=== PATIENT | male | born 1950 | race Two or more races ===

== ENCOUNTER 2021-12-24 15:39 | Emergency (ER) | payer OTHER ==
[~2021-12-24] VITALS: Ht 175.3 cm; Wt 113.4 kg
[2021-12-24 16:17] LABS: Basophils # (auto) 0.1 10 ^3/uL (0-0.2); Basophils % (auto) 1.1 % (0.0-2.0); Eosinophils # (auto) 0.5 10 ^3/uL (0-0.8); Eosinophils % (auto) 5.4 % (0.0-7.0); Hematocrit 42.9 % (41.0-53.0); Hemoglobin 15.4 g/dL (13.5-17.5); Lymphocytes # (auto) 1.8 10 ^3/uL (0.4-5.4); Lymphocytes % (auto) 19.6 % (10.0-50.0); Mean Corpuscular Hemoglobin 30.2 pg (28.0-32.0); Mean Corpuscular Hgb Conc. 35.9 g/dL (32.0-36.0); Mean Corpuscular Volume 84.1 fL (80.0-100.0); Monocytes # (auto) 0.9 10 ^3/uL (0-1.3); Monocytes % (auto) 9.3 % (0.0-12.0); Neutrophils % (auto) 64.6 % (37.0-80.0); Nucleated Red Blood Cells % 0.1 %; Red Cell Distribution Width 13.3 % (11.8-14.3); White Blood Cell 9.3 10^3/uL (4.4-10.8)
[2021-12-24 16:35] LABS: Albumin 3.4 g/dL (3.4-5.0); BUN/Creatinine Ratio 17.9; Calcium 8.5 mg/dL (8.5-10.1); Potassium 4.4 mmol/L (3.5-5.1)
[2021-12-24 16:39] LABS: Bilirubin, Total 0.3 mg/dL (0.2-1.0); Total Protein 7.1 g/dL (6.4-8.2)
[2021-12-24] MEDS ORDERED: SODIUM CHLORIDE 0.9% 500 ML IVB ONE (17:00)
[2021-12-24] MEDS ORDERED: SODIUM CHLORIDE 0.9% 1,000 ML IV ONE (17:00)
[2021-12-24 18:45] LABS: Urine WBC None Seen /hpf (0 - 3)
[2021-12-24] MEDS ORDERED: IOHEXOL 350 MG/ML 100ML IJ ONE ×2 (19:16→19:33)
[2021-12-24 19:50] LABS: Urine Bacteria NONE SEEN /hpf (None Seen); Urine Blood Negative /uL (Negative); Urine Specific Gravity 1.015 (1.001-1.035)
[2021-12-25 03:49] VITALS: BP 153/55
== END 2021-12-25 04:22 | disposition short-term general hospital (02) ==
LOC: EDBD 15:39 → ER 15:42
DX: S01.511A Laceration without foreign body of lip, initial encounter (principal); R55 Syncope and collapse; R41.82 Altered mental status, unspecified; R00.1 Bradycardia, unspecified; I44.7 Left bundle-branch block, unspecified; R79.1 Abnormal coagulation profile; E11.65 Type 2 diabetes mellitus with hyperglycemia; E78.5 Hyperlipidemia, unspecified; I10 Essential (primary) hypertension; Z88.0 Allergy status to penicillin; Z20.822 Contact with and (suspected) exposure to COVID-19; X58.XXXA Exposure to other specified factors, initial encounter; Y93.01 Activity, walking, marching and hiking; Y92.89 Other specified places as the place of occurrence of the external cause; Y99.8 Other external cause status
CPT/HCPCS: 36415; 70450; 71046; 71275; 80053; 81001; 83735; 84443; 84484; 85025; 85379; 87426; 93005; 96360; 96361; 99285; J7030; J7040; Q9967

== ENCOUNTER 2025-05-17 08:30 | Emergency (ER) | payer OTHER ==
[~2025-05-17] VITALS: Ht 175.3 cm; Wt 113.0 kg
[~2025-05-17 08:30] MED LIST: GLIP10TA9 PO; IBUP-1455 PO; INSUINJ2 SC; LEVO750T8 PO; LOS25T PO; METF-370 PO; SIMV20TA20 PO; TRAM50TA2 PO
--- NOTE | 2025-05-17 09:01 | ED.PDOC ---
HPI (NEURO) HPI Comments 74-year-old male here with dizziness. He states he woke him up from his sleep. He states it is a room spinning sensation. Denies any weakness to 1 arm or 1 leg. No slurred speech no facial droop. No history of similar type of symptoms in the past. States when he moves his head to the right symptoms are worse. He has a history of atrial fibrillation and per medics, he was going in and out of atrial fibrillation with RVR. Denies any chest discomfort. No history of previous stroke. Chief Complaint: Dizziness Time Seen by MD: 09:00 Primary Care Provider: DESTINEY Fountain Notes: Nurses Notes, Restaurant Line Cook Notes, Medications, Allergies Information Source: Patient, Emergency Med Personnel Mode of Arrival: EMS Severity: Moderate Headache Severity: Moderate Timing: Hours Duration: Since onset Prehospital treatment: None Onset: At rest Circumstances: Spontaneous Symptoms: Vertigo Before: Normal During: Awake After: Normal Mentation History of: DM Modifying factors: Nothing Associated Signs and Symptoms: None Past Medical History PAST MEDICAL HISTORY: Cancer, DM, High Lipids, HTN Surgical History: Appendectomy, Hernia Repair Family History Family History: Reviewed,noncontributory to illness Social History Smoker: Non-Smoker Alcohol: Denies ETOH Use Drugs: Denies Drug Use Lives In: Home Constitutional: denies: chills, diaphoresis, fatigue, fever, malaise, sweats, weakness, others EENTM: denies: blurred vision, double vision, ear bleeding, ear discharge, ear drainage, ear pain, ear ringing, eye pain, eye redness, hearing loss, mouth pain, mouth swelling, nasal discharge, nose bleeding, nose congestion, nose pain, photophobia, tearing, throat pain, throat swelling, voice changes, others Respiratory: denies: cough, hemoptysis, orthopnea, SOB at rest, shortness of breath, SOB with excertion, stridor, wheezing, others Cardiovascular: denies: chest pain, dizzy spells, diaphoresis, Dyspnea on exertion, edema, irregular heart beat, left arm pain, lightheadedness, palpitations, PND, syncope, others Gastrointestinal: denies: abdomen distended, abdominal pain, blood streaked bowels, constipated, diarrhea, dysphagia, difficulty swallowing, hematemesis, melena, nausea, poor appetite, poor fluid intake, rectal bleeding, rectal pain, vomiting, others Genitourinary: denies: burning, dysuria, flank pain, frequency, hematuria, incontinence, penile discharge, penile sore, pain, testicle pain, testicle swelling, urgency, others Neurological: reports: dizziness; denies: fainting, headache, left sided numbness, left sided weakness, numbness, paresthesia, pre-existing deficit, right sided numbness, right sided weakness, seizure, speech problems, tingling, tremors, weakness, others Musculoskeletal: denies: back pain, gout, joint pain, joint swelling, muscle pain, muscle stiffness, neck pain, others Integumetry: denies: bruises, change in color, change in hair/nails, dryness, laceration, lesions, lumps, rash, wounds, others Allergic/Immunocompromised: denies: Difficulty Healing, Frequent Infections, Hives, Itching, others Hematologic/Lymphatic: denies: anemia, blood clots, easy bleeding, easy bruising, swollen glands, others Endocrine: denies: excessive hunger, excessive sweating, excessive thirst, excessive urination, flushing, intolerance to cold, intolerance to heat, unexplained weight gain, unexplained weight loss, others Psychiatric: denies: anxiety, bipolar disorder, depression, hopeless, panic disorder, schizophrenia, sleepless, suicidal, others All Other Systems: Reviewed and Negative Physical Exam General Appearance: No Apparent Distress, Normal HEENT: Normal ENT Inspection, Pharynx Normal, TMs Normal Neck: Full Range of Motion, Non-Tender, Normal, Normal Inspection Respiratory: Chest Non-Tender, Lungs Clear, No Accessory Muscle Use, No Respiratory Distress, Normal Breath Sounds Cardiovascular: No Edema, No Murmur, No Gallop, Normal Peripheral Pulses, Regular Rate/Rhythm Breast Exam: Deferred Gastrointestinal: No Organomegaly, Non Tender, No Pulsatile Mass, Normal Bowel Sounds, Soft Genitalia: Deferred Pelvic: Deferred Rectal: Deferred Extremities: No calf tenderness, Normal capillary refill, Normal inspection, Normal range of motion, Non-tender, Other (Plus two pitting edema to left lower extremity +1 to the right) Musculoskeletal : Apperance: Normal Neurologic: Alert, No Motor Deficits, Normal Affect, Normal Mood, No Sensory Deficits, Other (5/5 strength bilateral upper and lower extremity, no facial droop no slurred speech. Intact [id number] bilaterally intact rapid alternating movements of the hand.) Cerebellar Function: Normal Reflexes: Normal Skin: Dry, Normal Color, Warm Lymphatic: No Adenopathy EKG EKG : Comments Rate of 81 PVCs nonspecific intraventricular conduction delay sinus rhythm Was a procedure done? Was a procedure done?: No Differential Diagnosis (SZ) Seizure: N/A CVA: Other General Weakness: CVA, Dysrhythmia, Electrolyte imbalance, TIA, Vertigo: central, Vertigo: peripheral Headache: N/A X-Ray, Labs, Meds, VS Vital Signs Date Time Temp Pulse Resp B/P (MAP) Pulse Ox O2 Delivery O2 Flow Rate FiO2 05/17/25 12:52 97.7 74 20 122/71 (88) 96 97.7 05/17/25 10:00 77 12 128/68 (88) 97 05/17/25 08:50 Room Air* 0 21 05/17/25 08:45 81 05/17/25 08:38 98.0 110 18 158/94 99 98.0 Lab Test 05/17/25 10:39 Range/Units White Blood Count 10.3 4.4-10.8 10^3/uL Red Blood Count 5.59 4.5-5.90 10^6/uL Hemoglobin 16.1 13.5-17.5 g/dL Hematocrit 47.5 41.0-53.0 % Mean Corpuscular Volume 84.9 80.0-100.0 fL Mean Corpuscular Hemoglobin 28.8 28.0-32.0 pg Mean Corpuscular Hemoglobin Concent 33.9 32.0-36.0 g/dL Red Cell Distribution Width 13.8 11.8-14.3 % Platelet Count 277 140-450 10^3/uL Mean Platelet Volume 7.8 6.9-10.8 fL Neutrophils (%) (Auto) 75.1 37.0-80.0 % Lymphocytes (%) (Auto) 15.1 10.0-50.0 % Monocytes (%) (Auto) 7.5 0.0-12.0 % Eosinophils (%) (Auto) 1.4 0.0-7.0 % Basophils (%) (Auto) 0.9 0.0-2.0 % Neutrophils # (Auto) 7.7 1.6-8.6 10 ^3/uL Lymphocytes # (Auto) 1.6 0.4-5.4 10 ^3/uL Monocytes # (Auto) 0.8 0-1.3 10 ^3/uL Eosinophils # (Auto) 0.1 0-0.8 10 ^3/uL Basophils # (Auto) 0.1 0-0.2 10 ^3/uL Nucleated Red Blood Cells 0.1 % Sodium Level 141 136-145 mmol/L Potassium Level 4.4 3.5-5.1 mmol/L Chloride Level 107 98-107 mmol/L Carbon Dioxide Level 27 20-31 mmol/L Anion Gap 7 5-15 Blood Urea Nitrogen 16 9-23 mg/dL Creatinine 0.96 0.700-1.30 mg/dL Glomerular Filtration Rate Calc 82 >90 mL/min BUN/Creatinine Ratio 16.7 10.0-20.0 Serum Glucose 136 H 74-106 mg/dL Calcium Level 9.2 8.7-10.4 mg/dL Current Medications Medications (Trade) Dose Ordered Sig/Masoud Route Start Time Stop Time Status Last Admin Meclizine HCl (Antivert Tablet) 50 mg ONCE ONCE PO 05/17/25 10:00 05/17/25 10:04 DC 05/17/25 10:29 Sodium Chloride 1,000 ml @ 1,000 mls/hr Q1H ONCE IV 05/17/25 10:00 05/17/25 10:59 DC 05/17/25 10:00 [place] [id number] Ph: [phone] DIAGNOSTIC IMAGING Diagnostic Imaging Report : [id number] Signed PATIENT: MILADIS ALEXANDER ACCT: [id number] UNIT: [id number] : 1950 LOC: ER ROOM / BED: / AGE / SEX: 74 / M ADM STATUS: REG ER SERVICE 1000 ORDERING PHYSICIAN: FORREST SOLOMON MD PROCEDURE(s): HWOCT - HEAD WITHOUT CONTRAST REASON: Rule out brain tumor, dizziness ORDER NUMBER(s): [id number], ACCESSION NUMBER(s): [id number] CT HEAD WITHOUT CONTRAST INDICATION: Rule out brain tumor, dizziness COMPARISON: HEAD WITHOUT CONTRAST on DOS: 12/24/21, HWOCT on DOS: 12/24/21 TECHNIQUE: CT of the head without intravenous contrast. RADIATION DOSE: CTDIvol: 54 mGy, DLP: 1075 mGy*cm FINDINGS: There is no evidence of acute intracranial hemorrhage, extra-axial collection, mass effect, midline shift, herniation or hydrocephalus. The ventricles, sulci and cisterns are age appropriate. The lake-white differentiation is intact. The visualized paranasal sinuses and mastoid air cells are clear. The surrounding soft tissues and osseous structures are unremarkable. IMPRESSION: 1. No evidence of acute intracranial hemorrhage, mass effect or hydrocephalus. ATED BY: TANNER RAYGOZA MD DICTATED DATE/TIME: 05/17/251047 SIGNED BY: TANNER RAYGOZA MD SIGNED DATE/TIME: 05/17/251047 CC: 74-year-old male presents here with dizziness. He states it is a room spinning sensation worse in the right. At this time I considered possible stroke however I have low suspicion as he has no other symptoms besides dizziness. He has intact rapid alternating movements of the hand and also intact [id number] on my examination. I have written for CBC, BMP, and EKG to be performed. Also have ordered a lower extremity ultrasound as he has leg swelling to that left lower extremity. There was concern the patient was in AFib RVR when medics picked him up but he has been rate controlled while here in the ER so far. Additionally I have written for normal saline bolus a CT scan of the brain to rule out mass, and also meclizine p.o.. At this time patient has been given meclizine. Multiple re-evaluations he is starting to feel better. He has been given 1 L of normal saline. CT scan of the brain is unremarkable. Ultrasound of the lower extremity has been done with no evidence of DVT. EKG with nonspecific intraventricular conduction delay. No evidence of acute arrhythmia that would explain his dizziness. On re-evaluation at 12:30 p.m., he is able to ambulate without difficulty. He has no room spinning sensation and ambulation is steady. I have given a prescription for meclizine. Advised him to follow up with his PCP in 2-3 days and return to ER if symptoms worsen or persist. Patient agreeable. Time of 1ST Reevaluation: 09:30 Reevaluation 1ST: Unchanged Time of 2ND Reevaluation: 12:53 Reevaluation 2ND: Improved Patient Education/Counseling: Diagnosis, Treatment Family Education/Counseling: No Family Present Departure 1 Departure Time of Disposition: 12:57 Impression: Primary Impression: Vertigo Additional Impression: Leg swelling Disposition: 01 HOME / SELF CARE / HOMELESS Condition: Stable e-Prescriptions Meclizine HCl (Meclizine) 25 Mg Chw 25 MG PO Q6HPRN PRN, #14 CHW Prov: FORREST SOLOMON MD 05/17/25 Discharged With: Self, Spouse Critical Care Note Critical Care Time?: No Stability Stability form required: No Heart Score Heart Score: Heart Score Response (Comments) Value History N/A 0 EKG N/A 0 Age N/A 0 Risk Factors N/A 0 Troponin N/A 0 Total 0 I personally scribed for FORREST SOLOMON MD ([email or web address]) on 05/17/25 at 09:01. Electronically submitted by Amanda Collado ([email or web address]). I personally scribed for FORREST SOLOMON MD ([email or web address]) on 05/17/25 at 09:21. Electronically submitted by Amanda Collado ([email or web address]). I personally scribed for FORREST SOLOMON MD ([email or web address]) on 05/17/25 at 11:40. Electronically submitted by Amanda Collado ([email or web address]). I personally scribed for FORREST SOLOMON MD ([email or web address]) on 05/17/25 at 12:47. Electronically submitted by Amanda Collado ([email or web address]). FORREST SOLOMON MD May 17, 2025 09:01
--- NOTE | 2025-05-17 09:09 | ECG ---
[facility] Test Date: 2025-05-17 Test Time: 08:45:51 Pat Name: MILADIS ALEXANDER Department: [facility] ED Patient ID: [facility]-[id number] Room: Gender: M Regional Maintenance Manager: PEGGY : 1950 Requested By: FORREST SOLOMON Order Number: [id number] Reading MD: Measurements Intervals [place] Rate: 81 P: 0 WI: 0 QRS: 155 QRSD: 164 T: -27 QT: 451 QTc: 524 Interpretive Statements Afib/flut and V-paced complexes No further rhythm analysis attempted due to paced rhythm Nonspecific intraventricular conduction delay Probable anteroseptal infarct, recent Lateral leads are also involved Please click the below link to view image of tracing.
[2025-05-17] MEDS: SODIUM CHLORIDE 0.9% 1,000 ML IV ONE (10:00)
[2025-05-17] MEDS: MECLIZINE HCL 25 MG TAB PO ONE (10:29)
[2025-05-17 10:48] LABS: Hematocrit 47.5 % (41.0-53.0); Hemoglobin 16.1 g/dL (13.5-17.5); Mean Corpuscular Hemoglobin 28.8 pg (28.0-32.0); Mean Corpuscular Volume 84.9 fL (80.0-100.0); Nucleated Red Blood Cells % 0.1 %
--- NOTE | 2025-05-17 10:51 | DVH ---
CT HEAD WITHOUT CONTRAST INDICATION: Rule out brain tumor, dizziness COMPARISON: HEAD WITHOUT CONTRAST on DOS: 12/24/21, HWOCT on DOS: 12/24/21 TECHNIQUE: CT of the head without intravenous contrast. RADIATION DOSE: CTDIvol: 54 mGy, DLP: 1075 mGy*cm FINDINGS: There is no evidence of acute intracranial hemorrhage, extra-axial collection, mass effect, midline s hift, herniation or hydrocephalus. The ventricles, sulci and cisterns are age appropriate. The lake -white differentiation is intact. The visualized paranasal sinuses and mastoid air cells are clear. The surrounding soft tissues and osseous structures are unremarkable. IMPRESSION: 1. No evidence of acute intracranial hemorrhage, mass effect or hydrocephalus.
[2025-05-17 10:52] LABS: Chloride 107 mmol/L (98-107); Potassium 4.4 mmol/L (3.5-5.1); Sodium 141 mmol/L (136-145)
[2025-05-17 10:53] LABS: Anion Gap 7 (5-15); Carbon Dioxide 27 mmol/L (20-31)
[2025-05-17 10:54] LABS: Calcium 9.2 mg/dL (8.7-10.4)
[2025-05-17 10:59] LABS: BUN/Creatinine Ratio 16.7 (10.0-20.0); Blood Urea Nitrogen 16 mg/dL (9-23); Glucose 136 mg/dL (74-106)
--- NOTE | 2025-05-17 11:57 | DVH ---
Left lower extremity venous duplex Clinical History: Rule out DVT Comparison: None Technique: Duplex Doppler evaluation of the deep venous system of the left lower extremity from the common femor al vein to the popliteal vein including color Doppler and spectral/pulsed waveform analysis was perfo rmed. Findings: The common femoral vein demonstrates appropriate compressibility and waveform variability. There is compressibility/patency of the great saphenous vein at the proximal thigh. The femoral vein demonstrates appropriate compressibility and waveform variability. The deep femoral vein demonstrates appropriate compressibility and waveform variability. The popliteal vein demonstrates appropriate compressibility and waveform variability. There is normal compressibility at the tibioperoneal trunk. Impression: 1. No left femoropopliteal venous thrombosis. 2. Contralateral common femoral vein is patent.
[2025-05-17 12:52] VITALS: BP 122/71; PULSE 74; RESP 20; TEMP 97.7; O2SAT 96
[2025-05-17] MEDS ORDERED: MECL25CH38 PO (12:54)
== END 2025-05-17 12:57 | disposition home or self-care (01) ==
LOC: EDBD 08:30 → ER 08:30
DX: R42 Dizziness and giddiness (principal); M79.89 Other specified soft tissue disorders; E11.9 Type 2 diabetes mellitus without complications; E78.5 Hyperlipidemia, unspecified; I10 Essential (primary) hypertension; Z98.890 Other specified postprocedural states; Z95.0 Presence of cardiac pacemaker; Z90.49 Acquired absence of other specified parts of digestive tract
CPT/HCPCS: 36415; 70450; 80048; 85025; 93005; 93971; 96360; 99284; J7030; J8597